=== PATIENT | female | born 1990 | race Hispanic/Latino ===

== ENCOUNTER 2022-05-21 18:17 | Emergency (ER) | payer MEDICAID ==
[~2022-05-21] VITALS: Ht 165.1 cm; Wt 90.7 kg
[2022-05-21 18:45] LABS: BASOPHILS % (AUTO) 0.3 % (0.0-5.0); EOSINOPHILS % (AUTO) 0.3 % (0.0-8.0); HEMATOCRIT 40.8 % (36-48); LYMPHOCYTES % (AUTO) 25.2 % (21.0-51.0); MEAN CORPUSCULAR HEMOGLOBIN 27.3 pg (27.0-33.0); MEAN CORPUSCULAR HGB CONC 32.4 g/dL (32.0-36.0); MEAN CORPUSCULAR VOLUME 84.3 fL (79-99); MONOCYTES % (AUTO) 6.7 % (3.0-13.0); NEUTROPHILS % (AUTO) 66.7 % (40.0-77.0); PLATELET COUNT (AUTO) 438 K/uL (130-400); RED BLOOD CELL COUNT(AUTO) 4.84 MIL/uL (4.00-5.50); RED CELL DISTRIBUTION WIDTH 14.4 % (11.0-15.5); WHITE BLOOD COUNT (AUTO) 11.6 K/uL (4.8-10.8)
[2022-05-21 19:17] LABS: ALANINE AMINOTRANSFERASE 42 U/L (12-78); ALBUMIN 3.1 g/dL (3.5-5.0); ALCOHOL, BLOOD < 3 mg/dL (0-10); ASPARTATE AMINOTRANSFERASE 22 U/L (10-37); CARBON DIOXIDE 32 mmol/L (21-32); CHLORIDE 100 mmol/L (101-111); CREATINE KINASE, TOTAL 46 U/L (21-232); CREATININE 0.7 mg/dL (0.5-1.5); GLOMERULAR FILTR. RATE CALC 104 mL/min (>60); GLUCOSE,RANDOM 114 mg/dL (70-105); POTASSIUM 3.3 mmol/L (3.5-5.1); SODIUM SERUM 138 mmol/L (136-145); TOTAL PROTEIN, SERUM 7.4 g/dL (6.0-8.3); UREA NITROGEN, BLOOD 7 mg/dL (7-18)
[2022-05-21 19:21] LABS: ACETAMINOPHEN < 1 mcg/mL (10-30); SALICYLATE < 2.8 mg/dL (2.8-20.0)
[2022-05-21 19:32] LABS: APPEARANCE,URINE CLEAR (CLEAR); BILIRUBIN,URINE NEGATIVE (NEGATIVE); COLOR,URINE YELLOW (YELLOW); GLUCOSE, URINE (UA) NEGATIVE (NEGATIVE); KETONES,URINE 40 mg/dL (NEGATIVE); LEUKOCYTE ESTERASE ,URINE MODERATE (NEGATIVE); NITRATE,URINE NEGATIVE (NEGATIVE); OCCULT BLOOD,URINE TRACE-INTACT (NEGATIVE); PH,URINE 8.5 (5.0-8.0); PROTEIN,URINE TRACE mg/dL (NEGATIVE); UROBILINOGEN,URINE 0.2 mg/dL (0.2-1.0)
[2022-05-21 19:36] LABS: HCG,QUALITATIVE URINE NEGATIVE (NEGATIVE)
[2022-05-21 19:38] LABS: AMPHET/METH SCREEN,URINE NEGATIVE (NEGATIVE); BARBITURATE SCREEN, URINE NEGATIVE (NEGATIVE); BENZODIAZEPINES SCREEN,URINE NEGATIVE (NEGATIVE); CANNABINOID SCREEN,URINE NEGATIVE (NEGATIVE); COCAINE SCREEN,URINE NEGATIVE (NEGATIVE); PHENCYCLIDINE SCREEN,URINE NEGATIVE (NEGATIVE)
[2022-05-21 19:55] LABS: BACTERIA,URINE Few /HPF (None Seen); MUCUS,URINE Rare LPF (None Seen); SQUAMOUS EPITHELIAL CELL,UR Few /HPF (0-2)
[2022-05-21] MEDS ORDERED: POTASSIUM BICARB/CIT AC 25 MEQ TABLET.EFF PO ONE (20:30)
[2022-05-22] MEDS ORDERED: DIAZEPAM 5 MG TABLET ONE (01:54)
[2022-05-22] MEDS ORDERED: DIAZEPAM 5 MG TABLET PO SCH (02:00)
[2022-05-22 06:55] VITALS: BP 126/78
== END 2022-05-22 08:05 | disposition left against medical advice (07) ==
LOC: EDH 18:17
DX: F20.9 Schizophrenia, unspecified (principal); F22 Delusional disorders; E66.9 Obesity, unspecified; Z20.822 Contact with and (suspected) exposure to COVID-19; Z88.0 Allergy status to penicillin; Z91.51 Personal history of suicidal behavior; Z68.33 Body mass index [BMI] 33.0-33.9, adult
CPT/HCPCS: 99285; 87635; 82550; 80053; 80305; 85025; 87088; 81025; 36415; 81001; G0481; C9803

== ENCOUNTER 2024-11-04 06:38 | Day surgery (SDC) | payer MEDICAID ==
[2024-11-04] VITALS (11 sets, daily range): BP systolic 113–139; BP diastolic 63–88; PULSE 68–96; RESP 15–18; TEMP 97.7–98.6
[~2024-11-04] VITALS: Ht 162.6 cm; Wt 138.8 kg
[~2024-11-04 06:38] MED LIST: LEVO25CA4 PO; METF-444 PO; VENL-83 PO
[2024-11-04] MEDS: 0.9%NACL 1000ML 1,000 ML IV ONE (08:07)
[2024-11-04] MEDS ORDERED: proPOFol 10 MG/ML 20ML VIAL IV ONE (10:29)
--- NOTE | 2024-11-04 12:00 | NUR ---
Full and complete Discharge Instructions given to Patient and Family both verbally and in writing.. All questions answered.Voiced understanding to GI procedure precautions and Follow Up. PIV removed with catheter tip intact. Denies c/o pain or discomfort. W/C to POV with Family to home.
== END 2024-11-04 11:55 | disposition home or self-care (01) ==
LOC: DAH 06:38 → ENDO 06:38
PROVIDERS: ATTEND Internal Medicine Gastroenterology
DX: R10.13 Epigastric pain (principal); K29.50 Unspecified chronic gastritis without bleeding; K22.89 Other specified disease of esophagus; K21.9 Gastro-esophageal reflux disease without esophagitis; K59.00 Constipation, unspecified; R94.5 Abnormal results of liver function studies; K57.30 Diverticulosis of large intestine without perforation or abscess without bleeding; K64.0 First degree hemorrhoids; E66.01 Morbid (severe) obesity due to excess calories; F41.9 Anxiety disorder, unspecified; E11.9 Type 2 diabetes mellitus without complications; F32.A Depression, unspecified; E03.9 Hypothyroidism, unspecified; E78.00 Pure hypercholesterolemia, unspecified; F25.9 Schizoaffective disorder, unspecified; Z68.43 Body mass index [BMI] 50.0-59.9, adult; Z79.84 Long term (current) use of oral hypoglycemic drugs; Z79.899 Other long term (current) drug therapy
CPT/HCPCS: 84703; 82948 ×2; 36415; 43239; J7030 ×2; J2704; A4620; A4215; A4223; A7002; A4222; A4221; A4663; A4606; J3490